=== PATIENT | female | born 1985 | race African-American/Black ===

== ENCOUNTER 2016-11-22 22:03 | Emergency (ER) | payer OTHER ==
[2016-11-23 02:00] LABS: URINE APPEARANCE CLEAR; URINE BILIRUBIN NEG (NEG); URINE BLOOD NEG (NEG); URINE COLOR YELLOW; URINE GLUCOSE NEG (NEG); URINE KETONE NEG (NEG); URINE LEUKOCYTE ESTERASE TRACE (NEG); URINE NITRATE NEG (NEG); URINE PROTEIN NEG (NEG)
[2016-11-23 02:02] LABS: URBCS1 AUWI 0-2 /[HPF] (0-2); URINE BACTERIA AUWI NEG (NEGATIVE); URINE SQUAMOUS EPITHELIAL CELL NONE SEEN /[HPF]
[2016-11-23 02:04] LABS: CULTURE INDICATED? NO
[2016-11-25 09:55] LABS: CHLAMYDIA TRACH Not Detected (Not Detected); N GONOR Not Detected (Not Detected)
== END 2016-11-23 03:40 | disposition home or self-care (01) ==
LOC: CED 22:03
PROVIDERS: Nurse Practitioner Family
DX: O23.511 Infections of cervix in pregnancy, first trimester (principal); Z3A.01 Less than 8 weeks gestation of pregnancy
CPT/HCPCS: 36415; 81003; 84703; 87491; 87591; 87808; 87905; 96372; 99284; J0696